=== PATIENT | female | born 1970 | race Caucasian/White ===

== ENCOUNTER 2018-04-02 04:25 | Emergency (ER) | payer OTHER ==
[2018-04-02] MEDS ORDERED: Sodium Chloride 0.9% 1000 ML 1,000 ML IV STA (05:02)
[2018-04-02] MEDS ORDERED: Zofran 4 MG/2 ML VIAL IV ONE (05:02)
[2018-04-02 05:11] LABS: BASOPHIL % 0.4 % (0.0-0.4); Basophil (Absolute #) 0.04 (0-0.4); Eosinophil % 2.8 % (0.00-5.0); Eosinophil (Absolute #) 0.32 (0-0.5); Granulocyte Absolute (ANC) 6.99 (1.4-6.9); Granulocytes % 62.1 % (36.0-66.0); Hematocrit 43.6 % (35-47); Hemoglobin 14.5 gm/dl (12.0-16.0); Lymphocytes % 25.8 % (24.0-44.0); Mean Cell Volume 85.2 fl (78-100); Mean Corpuscular Hemoglobin 28.3 pg (26-32); Mean Corpuscular Hgb Concent. 33.3 g/dl (32-36); Monocytes % 8.9 % (0.0-12.0); Platelet Count 331 K/mm3 (150-450); Red Blood Count 5.12 M/mm3 (4.1-5.4); Red Cell Distribution Width 14.3 % (11.5-14.0); White Blood Count 11.3 K/mm3 (4.0-10.5)
[2018-04-02] MEDS ORDERED: Zofran 4 MG/2 ML VIAL ONE (05:11)
[2018-04-02] MEDS ORDERED: Sodium Chloride 0.9% 1000 ML 1,000 ML ONE (05:11)
--- NOTE | 2018-04-02 05:13 | ERPHSYRPT ---
- History of Present Illness Time Seen by Provider: 04/02/18 04:55 Historian: patient Exam Limitations: clinical condition Patient Subjective Stated Complaint: pt c/o pain to abd pain since approx 0130, states she was diagnosed with gallstones previously Triage Nursing Assessment: pt alert and oriented. answers questions approp. pt deaf, reads lips. skin warm and dry. respirations nonlabore dwith lungs cta. abd soft, tenderness noted to rt upper quad with light palpation. bowel osunds presnt. Physician History: PATIENT WITH A HISTORY OF HYPERTENSION, ASTHMA AND GALLSTONES COMPLAINS OF RIGHT UPPER ABDOMINAL PAINS SINCE 1:30AM ASSOCIATED WITH DRY HEAVES. DENIES FEVER, EMESIS, DIARRHEA OR URINARY SYMPTOMS. Timing/Duration: today Activities at Onset: none Abdominal Pain Onset Location: RUQ Pain Radiation: RUQ Severity of Pain-Max: severe Severity of Pain-Current: severe Modifying Factors: Improves With: nothing Associated Symptoms: nausea Previous symptoms: same symptoms as today Allergies/Adverse Reactions: aspirin Allergy (Verified 04/02/18 04:54) azithromycin [From Zithromax] Allergy (Verified 04/02/18 04:54) brompheniramine [From Dimetapp (brompheniramine-PPA)] Allergy (Verified 04:54) levofloxacin [From Levaquin] Allergy (Verified 04/02/18 04:54) Penicillins Allergy (Verified 04/02/18 04:54) phenylpropanolamine [From Dimetapp (brompheniramine-PPA)] Allergy (Verified 09/10 04:54) prednisone Allergy (Verified 04/02/18 04:54) Home Medications: Amlodipine Besylate 10 mg [Norvasc 10 MG] 10 mg PO DAILY 04/02/18 [History] Lansoprazole 15 mg PO DAILY 04/02/18 [History] Levothyroxine Sodium 50 Mcg [Synthroid 50 Mcg] 50 mcg PO DAILY 04/02/18 [ History] Meloxicam 15 mg [Meloxicam 15 MG] 15 mg PO DAILY 04/02/18 [History] Montelukast Sodium 10 mg [Singulair 10 MG] 10 mg PO DAILY 04/02/18 [History] Hx Tetanus, Diphtheria Vaccination/Date Given: Yes Hx Influenza Vaccination/Date Given: No Hx Pneumococcal Vaccination/Date Given: No Immunizations Up to Date: Yes - Review of Systems Constitutional: No Fever, No Chills Eyes: No Symptoms Ears, Nose, & Throat: No Symptoms Respiratory: No Cough, No Dyspnea Cardiac: No Chest Pain, No Edema, No Syncope Abdominal/Gastrointestinal: Abdominal Pain, Nausea, No Vomiting, No Diarrhea Genitourinary Symptoms: No Symptoms, No Dysuria Musculoskeletal: No Symptoms, No Back Pain, No Neck Pain Skin: No Rash Neurological: No Dizziness, No Focal Weakness, No Sensory Changes Psychological: No Symptoms Endocrine: No Symptoms All Other Systems: Reviewed and Negative - Past Medical History Pertinent Past Medical History: Yes Respiratory History: Asthma, COPD Musculoskeletal History: Arthritis GI Medical History: Gallbladder Disease - Past Surgical History Female Surgical History: Section Other Surgical History: fatty tumors removed from beneath arms - Social History Smoking Status: Never smoker Exposure to second hand smoke: Yes Drug Use: none Patient Lives Alone: No - Female History Hx Last Menstrual Period: 03/15/18 Hx Now: No - Nursing Vital Signs Nursing Vital Signs: Initial Vital Signs Temperature 97.0 F 04/02/18 04:39 Pulse Rate 87 04/02/18 04:39 Respiratory Rate 18 04/02/18 04:39 Blood Pressure 141/86 04/02/18 04:39 O2 Sat by Pulse Oximetry 98 04/02/18 04:39 Pain Scale Pain Intensity 2 - Physical Exam General Appearance: mild distress Eye Exam: PERRL/EOMI, eyes nml inspection Ears, Nose, Throat Exam: normal ENT inspection Neck Exam: normal inspection, non-tender, supple, full range of motion Respiratory Exam: normal breath sounds, lungs clear, No respiratory distress Cardiovascular Exam: regular rate/rhythm, normal heart sounds Gastrointestinal/Abdomen Exam: soft, normal bowel sounds, tenderness (RIGHT UPPER QUAD, WITH GUARDING) Back Exam: normal inspection, CVA tenderness (MODERATE RIGHT CVA TENDERNESS) Extremity Exam: normal inspection, normal range of motion Neurologic Exam: alert, oriented x 3, cooperative Skin Exam: normal color SpO2 Interpretation: normal SpO2: 98 Oxygen Delivery: Room Air - CT Exams Abdomen/Pelvis CT Interpretation: Tele-radiologist Report (NORMAL APPENDIX,THERE MAY BE MINIMALLY CALCIFIED STONES OR SLUDGE IN THE GALLBLADDER, NO FINDINGS SUSPICIOUS FOR GALLBLADDER OBSTRUCTION OR ACUTE CHOLECYSTITIS) Ordered Tests: Active Orders 24 hr Category Date Time Status Clean Catch Urine Specimen STAT Care 04/02/18 05:02 Active IV Insertion STAT Care 04/02/18 05:02 Active ABDOMEN AND PELVIS W CONTRAST [CT] Stat Exams 04/02/18 05:03 Taken AMYLASE Stat Lab 04/02/18 05:11 Completed BLOOD CULTURE Stat Lab 04/02/18 05:35 Received CBC W DIFF Stat Lab 04/02/18 05:11 Completed CMP Stat Lab 04/02/18 05:11 Completed CULTURE,URINE Stat Lab 04/02/18 05:22 Received HCG,QUALITATIVE URINE Stat Lab 04/02/18 05:33 Completed LIPASE Stat Lab 04/02/18 05:11 Completed UA W/ MICROSCOPIC Stat Lab 04/02/18 05:22 Completed Medication Summary Generic Name Dose Route Start Last Admin Trade Name Freq PRN Reason Stop Dose Admin Sodium Chloride 1,000 mls @ 500 mls/hr 04/02/18 05:02 04/02/18 05:12 Sodium Chloride 0.9% 1000 Ml IV 04/02/18 07:01 500 mls/hr .Q2H STA Administration Discontinued Medications Generic Name Dose Route Start Last Admin Trade Name Freq PRN Reason Stop Dose Admin Hydromorphone HCl 1 mg 04/02/18 05:15 04/02/18 05:24 Hydromorphone 1 Mg/Ml Ampule IV 04/02/18 05:16 1 mg STAT ONE Administration Hydromorphone HCl Confirm 04/02/18 05:23 Dilaudid 2 Mg Injection Administered 04/02/18 05:24 Dose 2 mg .ROUTE .STK-MED ONE Sodium Chloride Confirm 04/02/18 05:11 Sodium Chloride 0.9% 1000 Ml Administered 04/02/18 05:12 Dose 1,000 mls @ ud .ROUTE .STK-MED ONE Ondansetron HCl 4 mg 04/02/18 05:02 04/02/18 05:12 Zofran 4 Mg/2 Ml Vial IV 04/02/18 05:03 4 mg STAT ONE Administration Ondansetron HCl Confirm 04/02/18 05:11 Zofran 4 Mg/2 Ml Vial Administered 04/02/18 05:12 Dose 4 mg .ROUTE .STK-MED ONE Lab/Rad Data: Laboratory Result Diagrams 04/02/18 05:11 04/02/18 05:11 Laboratory Results 04/02/18 04/02/18 04/02/18 Range/Units 05:33 05:22 05:11 WBC (4.0-10.5) K/mm3 RBC (4.1-5.4) M/mm3 Hgb (12.0-16.0) gm/dl Hct (35-47) % MCV (78-100) fl MCH (26-32) pg MCHC (32-36) g/dl RDW (11.5-14.0) % Plt Count (150-450) K/mm3 MPV (6-9.5) fl Gran % (36.0-66.0) % Eos # (Auto) (0-0.5) Absolute Lymphs (auto) (1.0-4.6) Absolute Monos (auto) (0.0-1.3) Lymphocytes % (24.0-44.0) % Monocytes % (0.0-12.0) % Eosinophils % (0.00-5.0) % Basophils % (0.0-0.4) % Absolute Granulocytes (1.4-6.9) Basophils # (0-0.4) Sodium 139 (137-145) mmol/L Potassium 3.5 (3.5-5.1) mmol/L Chloride 100 (98-107) mmol/L Carbon Dioxide 25 (22-30) mmol/L Anion Gap 16.9 H (5-15) MEQ/L BUN 16 (7-17) mg/dL Creatinine 0.64 (0.52-1.04) mg/dL Estimated GFR > 60.0 ML/MIN Glucose 140 H (74-106) mg/dL Calcium 9.4 (8.4-10.2) mg/dL Total Bilirubin 0.20 (0.2-1.3) mg/dL AST 15 (14-36) U/L ALT 15 (0-35) U/L Alkaline Phosphatase 91 (38-126) U/L Serum Total Protein 8.2 (6.3-8.2) g/dL Albumin 3.9 (3.5-5.0) g/dL Amylase 68 (30-110) U/L Lipase 145 (23-300) U/L Ur Collection Type VOID Urine Color YELLOW (YELLOW) Urine Appearance CLEAR (CLEAR) Urine pH 6.0 (5-6) Ur Specific [place] 1.025 (1.005-1.025) Urine Protein NEGATIVE (Negative) Urine Ketones NEGATIVE (NEGATIVE) Urine Blood TRACE NON-HEM (0-5) [place]/ul Urine Nitrite NEGATIVE (NEGATIVE) Urine Bilirubin NEGATIVE (NEGATIVE) Urine Urobilinogen NORMAL (0-1) mg/dL Ur Leukocyte Esterase TRACE (NEGATIVE) Urine Microscopic RBC 2-5 (0-2) /HPF Urine Microscopic WBC 2-5 (0-5) /HPF Ur Epithelial Cells MODERATE (FEW) /HPF Urine Bacteria MODERATE (NEGATIVE) /HPF Urine Mucus MODERATE (NEGATIVE) /HPF Urine Culture Reflexed YES (NO) Urine Glucose NEGATIVE (NEGATIVE) mg/dL Urine HCG, Qual NEGATIVE (Negative) Specimen Received 04/02/18 0525 04/02/18 Range/Units 05:11 WBC 11.3 H (4.0-10.5) K/mm3 RBC 5.12 (4.1-5.4) M/mm3 Hgb 14.5 (12.0-16.0) gm/dl Hct 43.6 (35-47) % MCV 85.2 (78-100) fl MCH 28.3 (26-32) pg MCHC 33.3 (32-36) g/dl RDW 14.3 H (11.5-14.0) % Plt Count 331 (150-450) K/mm3 MPV 11.0 H (6-9.5) fl Gran % 62.1 (36.0-66.0) % Eos # (Auto) 0.32 (0-0.5) Absolute Lymphs (auto) 2.90 (1.0-4.6) Absolute Monos (auto) 1.00 (0.0-1.3) Lymphocytes % 25.8 (24.0-44.0) % Monocytes % 8.9 (0.0-12.0) % Eosinophils % 2.8 (0.00-5.0) % Basophils % 0.4 (0.0-0.4) % Absolute Granulocytes 6.99 H (1.4-6.9) Basophils # 0.04 (0-0.4) Sodium (137-145) mmol/L Potassium (3.5-5.1) mmol/L Chloride (98-107) mmol/L Carbon Dioxide (22-30) mmol/L Anion Gap (5-15) MEQ/L BUN (7-17) mg/dL Creatinine (0.52-1.04) mg/dL Estimated GFR ML/MIN Glucose (74-106) mg/dL Calcium (8.4-10.2) mg/dL Total Bilirubin (0.2-1.3) mg/dL AST (14-36) U/L ALT (0-35) U/L Alkaline Phosphatase (38-126) U/L Serum Total Protein (6.3-8.2) g/dL Albumin (3.5-5.0) g/dL Amylase (30-110) U/L Lipase (23-300) U/L Ur Collection Type Urine Color (YELLOW) Urine Appearance (CLEAR) Urine pH (5-6) Ur Specific [place] (1.005-1.025) Urine Protein (Negative) Urine Ketones (NEGATIVE) Urine Blood (0-5) [place]/ul Urine Nitrite (NEGATIVE) Urine Bilirubin (NEGATIVE) Urine Urobilinogen (0-1) mg/dL Ur Leukocyte Esterase (NEGATIVE) Urine Microscopic RBC (0-2) /HPF Urine Microscopic WBC (0-5) /HPF Ur Epithelial Cells (FEW) /HPF Urine Bacteria (NEGATIVE) /HPF Urine Mucus (NEGATIVE) /HPF Urine Culture Reflexed (NO) Urine Glucose (NEGATIVE) mg/dL Urine HCG, Qual (Negative) Specimen Received - Progress Progress: improved Progress Note: 04/02/18 05:12 IV NORMAL SALINE 50OML/HR, X 2 ZOFRAN 4MG, DILAUDID 1MG IV Counseled pt/family regarding: lab results, diagnosis, need for follow-up, rad results - Departure Time of Disposition: 07:10 Departure Disposition: Home Clinical Impression: ACUTE BILIARY COLIC, CHOLELITHIASIS Condition: Stable Critical Care Time: No Referrals: FERNY HUTSON [Primary Care Provider] - Additional Instructions: CONTINUE ALL CURRENT MEDICATIONS. AVOID GREASY OR SPICY FOODS. CONSULT YOUR GENERAL SURGEON FOR EVALUATION. RETURN TO EMERGENCY FOR INCREASING PAIN DISCOMFORT. Prescriptions: Hydrocodone/APAP 10/325 mg [[place] 10/325 MG Tablet] 1 tab PO Q4H PRN PRN # 10 MDD 4 PRN Reason: Pain Ondansetron ODT 4 MG [Zofran Odt 4 mg] 4 mg PO Q6H PRN PRN #10 tab.rapdis PRN Reason: Nausea
[2018-04-02] MEDS ORDERED: Hydromorphone 1 mg/ml Ampule IV ONE (05:15)
[2018-04-02] MEDS ORDERED: DILAUDID 2 MG INJECTION ONE (05:23)
[2018-04-02 05:26] LABS: ALBUMIN 3.9 g/dL (3.5-5.0); ALKALINE PHOSPHATASE 91 U/L (38-126); AMYLASE 68 U/L (30-110); ANION GAP 16.9 MEQ/L (5-15); BLOOD UREA NITROGEN 16 mg/dL (7-17); CHLORIDE 100 mmol/L (98-107); Calcium 9.4 mg/dL (8.4-10.2); Carbon Dioxide 25 mmol/L (22-30); Creatinine 1 0.64 mg/dL (0.52-1.04); Glucose 140 mg/dL (74-106); LIPASE 145 U/L (23-300); Potassium 3.5 mmol/L (3.5-5.1); SGOT/AST 15 U/L (14-36); SGPT/ALT 15 U/L (0-35); SODIUM 139 mmol/L (137-145); Total Protein 8.2 g/dL (6.3-8.2)
[2018-04-02 05:39] LABS: Appearance CLEAR (CLEAR); Bilirubin NEGATIVE (NEGATIVE); Blood TRACE NON-HEM Ery/ul (0-5); Epithelial Cells MODERATE /HPF (FEW); Glucose NEGATIVE (NEGATIVE); Ketones NEGATIVE (NEGATIVE); Leukocyte Esterase TRACE (NEGATIVE); Mucus MODERATE /HPF (NEGATIVE); Nitrite NEGATIVE (NEGATIVE); Protein,Urine Dip NEGATIVE (Negative); Specific Gravity 1.025 (1.005-1.025); Urobilinogen NORMAL mg/dL (0-1)
[2018-04-02 05:40] LABS: Bacteria MODERATE /HPF (NEGATIVE)
[2018-04-02 07:07] VITALS: O2SAT 98
[2018-04-02 07:24] VITALS: BP 124/74; PULSE 88
--- NOTE | 2018-04-02 09:01 | XRAY ---
Indication: Right lower quadrant pain. Elevated WBC. Constipation. History ovarian cysts. Multiple contiguous axial images obtained through the abdomen and pelvis using 80 cc Isovue 370 contrast only. Comparison: None. Lung bases clear. Heart is borderline enlarged. Small hiatal hernia. Noncontrasted stomach and bowel loops appear nonobstructed. Normal appendix. No free fluid/air. There is mild diffuse scattered colonic fecal debris throughout. 2 cm right mid renal cortical cyst. Remaining liver, gallbladder, pancreas, spleen, adrenal glands, kidneys, ureters, bladder, and uterus appear unremarkable. Minimal aortic calcifications without AAA. There are several small periaortic nodes, largest 10 x 16 mm. Osseous structures intact with low lumbar degenerative facet arthropathy. Impression: 1. Mild fecal stasis without obstruction. 2. Incidental small hiatal hernia, right renal cysts, and small nonpathologic periaortic nodes. 3. Remaining CT abdomen/pelvis with contrast exam is negative. Comment: Preliminary interpretation was made by [facility]. No critical discrepancy. CT DI 28.13
== END 2018-04-02 07:24 | disposition home or self-care (01) ==
LOC: ED 04:25
DX: K80.50 Calculus of bile duct without cholangitis or cholecystitis without obstruction (principal); K80.20 Calculus of gallbladder without cholecystitis without obstruction; R10.11 Right upper quadrant pain; Z79.899 Other long term (current) drug therapy
CPT/HCPCS: 36000; 36415; 74177; 80053; 81000; 82150; 83690; 84703; 85025; 87040; 87086; 96360; 96361; 96374; 96375; 99284; J1170; J2405